=== PATIENT | female | born 1970 | race Caucasian/White ===

== ENCOUNTER 2024-01-14 05:12 | Day surgery (SDC) | payer OTHER ==
[2024-01-09 10:59] VITALS: BMI 26.1
[2024-01-14] MEDS ORDERED: ISOSULFAN BLUE 50 MG/5 ML VIAL SQ ONE ×2 (08:05→08:46)
[2024-01-14] MEDS ORDERED: MIDAZOLAM HCL 2 MG/2 ML SINGLE DOSE VIAL ONE (08:32)
[2024-01-14] MEDS ORDERED: ceFAZolin SODIUM 1 GM VIAL ONE (08:32)
[2024-01-14] MEDS ORDERED: PROPOFOL 80 ML ONE (08:32)
[2024-01-14] MEDS ORDERED: FENTANYL CITRATE/PF 50 MCG/ML VIAL ONE ×2 (08:32→12:59)
[2024-01-14] MEDS ORDERED: ROCURONIUM BROMIDE 50 MG/5 ML SYRINGE ONE (08:32)
[2024-01-14] MEDS ORDERED: HYDROmorphone HCl 2 MG/ML VIAL ONE (08:32)
[2024-01-14] MEDS ORDERED: LIDOCAINE HCL/PF 2% SDV 5ML VIAL ONE (08:33)
[2024-01-14] MEDS ORDERED: ONDANSETRON 4 MG/2 ML VIAL ONE (08:33)
[2024-01-14] MEDS ORDERED: SEVOFLURANE 250 ML BTL ONE (08:33)
[2024-01-14] MEDS ORDERED: ONDANSETRON 4 MG/2 ML VIAL IVPUSH PRN (08:36)
[2024-01-14] MEDS ORDERED: oxyCODONE HCL 5 MG TABLET PO PRN ×4 (08:36→12:15)
[2024-01-14] MEDS ORDERED: PROMETHAZINE HCL 25 MG/1 ML VIAL IVPB PRN (08:36)
[2024-01-14] MEDS ORDERED: LIDOCAINE HCL 1%, 10 MG/ML (20ML VIAL) ONE (08:45)
[2024-01-14] MEDS ORDERED: ACETAMINOPHEN INJECTION 100 ML IVPB ONE (09:37)
[2024-01-14] MEDS ORDERED: DEXAMETHASONE SOD PHOSPHATE 4 MG/1 ML VIAL ONE (09:48)
[2024-01-14] MEDS ORDERED: SUCCINYLCHOLINE CHLORIDE 200 MG/10 ML SYRINGE ONE (09:48)
[2024-01-14] MEDS: ceFAZolin SODIUM 1 GM VIAL IVPB ONE (09:59)
[2024-01-14] MEDS ORDERED: ONDANSETRON 4 MG/2 ML VIAL IVPB PRN (11:38)
[2024-01-14] MEDS ORDERED: ACETAMINOPHEN 500 MG TABLET (FP) PO PRN (11:38)
[2024-01-14] MEDS ORDERED: ACETAMINOPHEN 325 MG TABLET (FP) PO PRN ×2 (12:00→12:15)
[2024-01-14] MEDS: HYDROmorphone *PCA* 10MG/50ML DISP.SYRIN PCA SCH ×2 (13:11→14:36)
[2024-01-14] MEDS: LACTATED RINGERS SOLUTION 1,000 ML IV SCH (14:35)
[2024-01-14] MEDS: LACTATED RINGERS SOLUTION 1,000 ML/1,000 ML INFUS.BAG IV SCH (14:36)
[2024-01-14 17:19] VITALS: RESP 20
[2024-01-14] MEDS: CEFAZOLIN 1 GM in DEXTROSE 5%-WATER - 50 ML IVPB SCH (17:42)
[2024-01-15] MEDS ORDERED: oxyCODONE HCL 5 MG TABLET PO PRN (10:12)
[2024-01-15] MEDS ORDERED: ACETAMINOPHEN 500 MG TABLET (FP) PO PRN (10:13)
[2024-01-15 11:55] VITALS: BP 144/86; PULSE 86
[2024-01-15 12:04] VITALS: TEMP 97.9
== END 2024-01-15 13:46 | disposition home health service (06) ==
LOC: JASUSAT 05:12 → J8W 14:28 → JASUSAT 01-15 13:46
PROVIDERS: ATTEND Surgery
PROC: 0HTU0ZZ Resection of Left Breast, Open Approach (ICD-10-PCS; principal; 2024-01-14 09:00)
PROC: 0HHU0NZ Insertion of Tissue Expander into Left Breast, Open Approach (ICD-10-PCS; 2024-01-14 09:00)
PROC: 07B60ZX Excision of Left Axillary Lymphatic, Open Approach, Diagnostic (ICD-10-PCS; 2024-01-14 09:00)
PROC: C71L1ZZ Planar Nuclear Medicine Imaging of Upper Chest Lymphatics using Technetium 99m (Tc-99m) (ICD-10-PCS; 2024-01-14 09:00)
DX: C50.912 Malignant neoplasm of unspecified site of left female breast (principal)
CPT/HCPCS: 78195-TC; 86850; 86900; 86901; 88307-TC; 88331-TC; 88332; 88342-TC; 94760; A9541; C1789; J0131; Q4116

== ENCOUNTER 2024-03-10 03:50 | Day surgery (SDC) | payer OTHER ==
[2024-03-04 17:18] VITALS: BMI 24.7
[2024-03-10] MEDS ORDERED: LIDOCAINE HCL 1%, 10 MG/ML (20ML VIAL) ONE (08:09)
[2024-03-10] MEDS ORDERED: HEPARIN NA (PORCINE) 5,000 UNITS/ML 1ML VIAL ONE (12:33)
[2024-03-10] MEDS ORDERED: MIDAZOLAM HCL 2 MG/2 ML SINGLE DOSE VIAL ONE (13:37)
[2024-03-10] MEDS ORDERED: FENTANYL CITRATE/PF 50 MCG/ML VIAL ONE (13:37)
[2024-03-10] MEDS ORDERED: ONDANSETRON 4 MG/2 ML VIAL ONE (13:51)
[2024-03-10] MEDS ORDERED: ceFAZolin SODIUM 1 GM VIAL ONE (13:53)
[2024-03-10] MEDS: HEPARIN NA (PORCINE) 1,000 UNITS/ML 10ML M-D VIAL SQ ONE ×2 (14:00)
[2024-03-10] MEDS: LIDOCAINE HCL 1% PRESERVATIVE FREE - 30ML VIAL IJ ONE ×2 (14:00)
[2024-03-10] MEDS ORDERED: ONDANSETRON 4 MG/2 ML VIAL IVPUSH PRN (14:23)
[2024-03-10] MEDS ORDERED: LACTATED RINGERS SOLUTION 1,000 ML IV SCH (14:30)
[2024-03-10 16:13] VITALS: RESP 18; TEMP 97.8
[2024-03-10 16:44] VITALS: BP 146/96; PULSE 76
== END 2024-03-10 16:45 | disposition home or self-care (01) ==
LOC: JASU-SURG 03:50
PROVIDERS: ATTEND Surgery
PROC: 02HV33Z Insertion of Infusion Device into Superior Vena Cava, Percutaneous Approach (ICD-10-PCS; 2024-03-10)
PROC: B518YZA Fluoroscopy of Superior Vena Cava using Other Contrast, Guidance (ICD-10-PCS; 2024-03-10)
PROC: 0JH63WZ Insertion of Totally Implantable Vascular Access Device into Chest Subcutaneous Tissue and Fascia, Percutaneous Approach (ICD-10-PCS; principal; 2024-03-10 13:30)
DX: C50.912 Malignant neoplasm of unspecified site of left female breast (principal)
CPT/HCPCS: 36561; C1751; 71045-TC-FY; 76000-TC-FY; 94760; J1644